=== PATIENT | female | born 1930 | race Caucasian/White ===

== ENCOUNTER 2016-08-18 11:30 | Emergency (ER) | payer MEDICARE, BC ==
--- NOTE | ~2016-08-18 | EKG ---
PATIENT: ASHLEY GARCIA UNIT #: [id number] Ventricular Rate: 55 BPM Atrial Rate: 55 BPM P-R Interval: 168 ms QRS Duration: 92 ms Q-T Interval: 468 ms QTC Calculation(Bezet): 447 ms P Greenleaf: 67 degrees Calculated R Greenleaf: 10 degrees Calculated T Greenleaf: 66 degrees Diagnosis Line: Sinus bradycardia with sinus arrhythmia Diagnosis Line: Nonspecific T wave abnormality Diagnosis Line: Abnormal ECG Diagnosis Line: No previous ECGs available Diagnosis Line: Confirmed by GERTRUDIS CARDOZA MD ([id number]) on Diagnosis Line: 08/20/2016 9:21:29 AM INTERPRETING MD: SONY BOB
--- NOTE | ~2016-08-18 | CR72 ---
[facility] A Service of [facility] RADIOLOGY TEXT RESULTS PATIENT: ASHLEY GARCIA LOCATION: SED : 32 UNIT #: [id number] AGE: [address]: Angelica Radford MD SEX: F ORDER DR: [id number] [place] [id number] E MR#: [id number] Acc #: [id number] NAME: ASHLEY GARCIA : 1930 SEX: F STUDY DATE/TIME: 08/18/2016 12:34 UNIT: SED ROOM: STUDY DESCRIPTION: CR Chest Single View Portable Attending Physician: Angelica Radford M.D. Ordering Physician: Angelica Radford M.D. Primary Care Physician: Primary Care Physician No MEDICAL IMAGING REPORT This report is preliminary unless electronic signature is present. EXAM Portable chest 1 view 08/18/2016 HISTORY Generalized weakness and fatigue for 1 day. COMPARISON 09/05/2010. FINDINGS Borderline to mild cardiomegaly, otherwise negative. No consolidation, effusion, pneumothorax or suspicious nodule. IMPRESSION Borderline cardiomegaly. No acute disease. Dictated by... Asael Tabor M.D. THIS IS AN ELECTRONICALLY VERIFIED REPORT Asael Tabor M.D. at 08/19/2016 3:53 PM JOEY/[email or web address] TD: 08/18/2016 13:29 JOB #: [id number] MEDICAL IMAGING REPORT Page 1 of 1
--- NOTE | ~2016-08-18 | CT71 ---
[facility] A Service [facility] RADIOLOGY TEXT RESULTS PATIENT: ASHLEY GARCIA LOCATION: SED : 31 UNIT #: [id number] AGE: [address]: Angelica Radford MD SEX: F ORDER DR: [id number] [place] [id number] E MR#: [id number] Acc #: [id number] NAME: ASHLEY GARCIA : 1930 SEX: F STUDY DATE/TIME: 08/18/2016 12:30 UNIT: SED ROOM: STUDY DESCRIPTION: CT Head Wo Contrast Attending Physician: Angelica Radford M.D. Ordering Physician: Angelica Radford M.D. Primary Care Physician: Primary Care Physician No MEDICAL IMAGING REPORT This report is preliminary unless electronic signature is present. EXAM Head CT no contrast, 08/18/2016 COMPARISON None PROCEDURE Unenhanced head CT. This CT exam was performed with one or more of the following radiation dose reduction techniques: automatic exposure control, adjustment of mA and/or kV according to patient size, and iterative reconstruction. HISTORY Weakness and fatigue, generalized weakness since yesterday. FINDINGS The skull base and calvaria are normal. There is no intracranial hemorrhage or mass or evidence of acute infarct. There is no hydrocephalus or extraaxial fluid collection. The extracranial soft tissues are normal. IMPRESSION Normal negative unenhanced head CT. Dictated by... Asael Tabor M.D. THIS IS AN ELECTRONICALLY VERIFIED REPORT Asael Tabor M.D. at 08/19/2016 3:53 PM JOEY/jw [facility] A Service [facility] RADIOLOGY TEXT RESULTS PATIENT: ASHLEY GARCIA LOCATION: SED : 31 UNIT #: [id number] AGE: [address]: Angelica Radford MD SEX: F ORDER DR: TD: 08/18/2016 13:21 JOB #: [id number] MEDICAL IMAGING REPORT Page 1 of 1
[~2016-08-18 11:30] MED LIST: ALAVERT10 MG PO; AMOXIL500 MG PO; BENZONATATE PO; CALCIUM CARBONA1 TAB PO; CALCIUM1 TAB.CHEW PO; CLARITIN10 M2 PO; FELDENE20 MG PO; KEFLEX PO; LEVOTHYROXINE112 MCG PO; LEVOXYL125 MC1 PO; LORATADINE PO; MOBIC PO; MOTRIN400 M1 PO; PAROXETINE HCL40 M1 PO; PAXIL PO; REQUIP0.5 MG PO; RESTLESS LEG MED PO; ROPINIROLE HCL0.5 MG PO; SIMVASTATIN80 MG PO; VIT D2 PO; VITAMIN D3400 UNI1 PO; ZOCOR PO; ZOCOR80 MG PO
[2016-08-18 11:48] LABS: BASOPHIL% 1.1 % (0-2.5); EOSINOPHIL# 0.1 X10e3 (0-0.7); EOSINOPHIL% 3.2 % (0.0-7.0); HEMATOCRIT 36.3 % (35.0-45.0); HEMOGLOBIN 12.2 gm/dL (12.0-16.0); LYMPHOCYTE# 1.1 X10e3 (1.0-3.5); LYMPHOCYTE% 30.6 % (17.0-45.0); MEAN CELL VOLUME 90.3 FL (83-96); MEAN CORPUSCULAR HEMOGLOBIN 30.4 PG (28-34); MEAN CORPUSCULAR HGB CONC 33.7 g/dL (30-36); MEAN PLATELET VOLUME 9.3 FL (6.5-11.5); MONOCYTE# 0.3 X10e3 (0-1.0); MONOCYTE% 9.3 % (3.0-12.0); NEUTROPHIL# 2.1 X10e3 (1.5-7.1); NEUTROPHIL% 55.8 % (40-75); PLATELET COUNT 180 X10e3 (140-420); RED BLOOD COUNT 4.02 X10e (3.90-5.30); RED CELL DISTRIBUTION WIDTH 13.6 % (11.0-15.5); WHITE BLOOD COUNT 3.7 X10e3 (4.0-10.5)
[2016-08-18 11:53] LABS: DIFF IND NO
[2016-08-18 11:54] LABS: POC - CKMB 7.1 ng/mL (0.0-7.9)
[2016-08-18 11:55] LABS: POC - TROPONIN <0.05 ng/mL (<=0.05)
[2016-08-18 12:10] LABS: ALBUMIN SERUM 3.5 g/dL (3.5-5.0); BILIRUBIN, DIRECT 0.1 mg/dL (0.0-0.2); BILIRUBIN,INDIRECT 0.5 mg/dL (0.0-0.9); BILIRUBIN,TOTAL 0.6 mg/dL (0.2-2.0); CALCIUM SERUM 8.8 mg/dL (8.4-10.2); CREATININE SERUM 0.9 mg/dL (0.6-1.4); GLOM FILT RATE Estimated 58.8 mL/min (>60); POTASSIUM 4.1 mmol/L (3.5-5.1); PROTEIN TOTAL SERUM 6.4 g/dL (6.0-8.3)
[2016-08-18 13:22] LABS: URINE SOURCE CLEAN CATCH
[2016-08-18 13:24] LABS: URINE APPEARANCE CLEAR; URINE BILIRUBIN NEG (NEG); URINE BLOOD NEG (NEG); URINE COLOR YELLOW; URINE GLUCOSE NEG (NORM); URINE KETONE NEG (NEG); URINE LEUKOCYTE ESTERASE NEG (NEG); URINE NITRATE NEG (NEG); URINE PROTEIN NEG (NEG); URINE SPECIFIC GRAVITY <=1.005 (1.003-1.035); URINE UROBILINOGEN 0.2 MG/DL (NORM)
[2016-08-18 13:28] LABS: MICRO INDICATED? NO
[2016-08-18 13:31] LABS: POC - CKMB 8.8 ng/mL (0.0-7.9); POC - TROPONIN <0.05 ng/mL (<=0.05)
== END 2016-08-18 14:10 | disposition home or self-care (01) ==
LOC: SED 11:30
PROVIDERS: Student in an Organized Health Care Education/Training Program
DX: R53.83 Other fatigue (principal); E78.5 Hyperlipidemia, unspecified; E03.9 Hypothyroidism, unspecified; Z88.8 Allergy status to other drugs, medicaments and biological substances
CPT/HCPCS: 36415; 70450; 71010; 80048; 80076; 81003; 82553; 82947; 84443; 84484; 85025; 93005; 96360; 99284